=== PATIENT | male | born 1950 | race Caucasian/White ===

== ENCOUNTER 2018-08-06 08:30 | Outpatient (RCR) | payer MEDICARE, OTHER | END 2018-08-06 09:00 | disposition home or self-care (01) | LOC: PT 08:30 | DX: M54.5 Low back pain (principal) | CPT/HCPCS: G8978-GP; G8979-GP ==

== ENCOUNTER 2021-07-25 10:55 | Outpatient (RCR) | payer MEDICARE, OTHER | END 2021-07-29 17:00 | disposition home or self-care (01) | LOC: PT 10:55 | DX: Z96.659 Presence of unspecified artificial knee joint (principal) ==

== ENCOUNTER → 2021-09-23 | Outpatient (CLI) | payer MEDICARE, OTHER ==
[2021-09-23 07:31] LABS: HEMATOCRIT 34.2 % (42.0-52.0); HEMOGLOBIN 10.2 g/dL (13.5-18.0); MEAN PLATELET VOLUME 10.3 fl (7.4-10.4); RED BLOOD COUNT 3.99 M/mm3 (4.20-5.60); WHITE BLOOD COUNT 8.9 K/mm3 (4.8-10.8)
[2021-09-23 07:42] LABS: ALBUMIN 2.9 g/dL (3.4-4.8)
[2021-09-23 07:43] LABS: POTASSIUM 3.8 mmol/L (3.5-5.1)
[2021-09-23 07:44] LABS: CALCIUM 9.6 mg/dL (8.3-10.5)
[2021-09-23 07:45] LABS: TOTAL PROTEIN 6.4 g/dL (6.2-8.1)
[2021-09-23 07:47] LABS: TOTAL BILIRUBIN 0.3 mg/dL (0.2-1.2)
[2021-09-23 21:24] LABS: FOLATE (FOLIC ACID) 14.2 ng/mL (2.0-20.0)
== END ==
LOC: LAB 05:00
PROVIDERS: Family Medicine
DX: Z01.89 Encounter for other specified special examinations (principal)

== ENCOUNTER → 2021-10-07 | Outpatient (CLI) | payer MEDICARE, OTHER | LOC: AMSURD 11:06 | DX: R00.0 Tachycardia, unspecified (principal) ==

== ENCOUNTER → 2021-10-18 | Outpatient (CLI) | payer MEDICARE, OTHER | LOC: RAD 10:00 → VAS 10:04 | DX: R00.0 Tachycardia, unspecified (principal) ==

== ENCOUNTER → 2021-10-25 | Outpatient (CLI) | payer MEDICARE | LOC: RAD 09:26 | DX: K80.20 Calculus of gallbladder without cholecystitis without obstruction (principal) ==

== ENCOUNTER → 2021-11-14 | Outpatient (CLI) | payer MEDICARE ==
[~2021-11-14] MED LIST: ASPIRIN E.C. 8181 MG PO; ATORVASTATIN CA40 MG PO; B-121000 MCG PO; BISMUTH262 M1 PO; DIGOX0.25 MG PO; ENOXAPARIN100 MG/M1 SQ; ESCITALOPRAM10 MG PO; FAMOTIDINE20 MG PO; FOLIC ACID1 MG PO; LEADER C 250 MG1 TAB PO; METOCLOPRAMIDE H5 M1 PO; METOPROLOL SUCC25 M1 PO; METRONIDAZOLE500 M1 PO; ONDANSETRON HYDR8 MG PO; PANTOPRAZOLE SO40 MG PO; PROBIOTIC1 EAC1 PO; TETRACYCLINE H500 M2 PO; TYLENOL 325MG325 MG PO; VITAMIN D250 MC1 PO; WELLBUTRIN XL300 M1 PO
== END ==
LOC: RAD 09:00
DX: I82.423 Acute embolism and thrombosis of iliac vein, bilateral (principal); E83.59 Other disorders of calcium metabolism; N29 Other disorders of kidney and ureter in diseases classified elsewhere; Z90.49 Acquired absence of other specified parts of digestive tract
CPT/HCPCS: Q9967

== ENCOUNTER 2021-11-19 20:46 | Observation (INO) | payer MEDICARE ==
[~2021-11-19] VITALS: Ht 177.8 cm; Wt 77.3 kg
[2021-11-19 21:26] LABS: BASO # 0.02 K/mm3 (0.02-0.10); EOS # 0.08 K/mm3 (0.04-0.40); EOS % 0.7 % (0.0-4.0); HEMATOCRIT 41.5 % (42.0-52.0); HEMOGLOBIN 12.9 g/dL (13.5-18.0); LYMPH# 1.72 K/mm3 (1.50-4.00); MEAN CELL VOLUME 81 fl (78-100); MEAN CORPUSCULAR HEMOGLOBIN 25 pg (27-31); MEAN CORPUSCULAR HGB CONC 31 g/dL (33-37); MEAN PLATELET VOLUME 10.5 fl (7.4-10.4); MONO # 1.21 K/mm3 (0.20-0.80); NEU # 8.71 K/mm3 (1.40-6.50); PLATELET COUNT 249 K/mm3 (130-400); RED CELL DISTRIBUTION WIDTH 16.4 % (11.5-14.5); WHITE BLOOD COUNT 11.8 K/mm3 (4.8-10.8)
[2021-11-19 21:38] LABS: POTASSIUM 3.2 mmol/L (3.5-5.1)
[2021-11-19 21:42] LABS: TOTAL PROTEIN 5.8 g/dL (6.2-8.1)
[2021-11-19 21:43] LABS: TOTAL BILIRUBIN 0.3 mg/dL (0.2-1.2)
[2021-11-19 22:28] LABS: URINE APPEARANCE CLOUDY; URINE BILIRUBIN NEGATIVE (NEGATIVE); URINE BLOOD 250 ery/uL (NEGATIVE); URINE COLOR BROWN; URINE GLUCOSE NEGATIVE (NEGATIVE); URINE KETONE 1+ (NEGATIVE); URINE LEUKOCYTE ESTERASE NEGATIVE (NEGATIVE); URINE NITRATE NEGATIVE (NEGATIVE); URINE PROTEIN(semi-quant) 1+ (NEGATIVE); URINE UROBILINOGEN NORMAL (NORMAL)
[2021-11-19] MEDS ORDERED: TYLENOL 325MG325 MG PO (22:53)
[2021-11-19] MEDS ORDERED: B-121000 MCG PO (22:54)
[2021-11-19] MEDS ORDERED: ATORVASTATIN CA40 MG PO (22:54)
[2021-11-19] MEDS ORDERED: ASPIRIN E.C. 8181 MG PO (22:54)
[2021-11-19] MEDS ORDERED: BISMUTH262 M1 PO (22:55)
[2021-11-19] MEDS ORDERED: DIGOX0.25 MG PO (22:56)
[2021-11-19] MEDS ORDERED: WELLBUTRIN XL300 M1 PO (22:56)
[2021-11-19] MEDS ORDERED: ENOXAPARIN100 MG/M1 SQ (22:57)
[2021-11-19] MEDS ORDERED: FAMOTIDINE20 MG PO (22:57)
[2021-11-19] MEDS ORDERED: ESCITALOPRAM10 MG PO (22:57)
[2021-11-19] MEDS ORDERED: FOLIC ACID1 MG PO (22:57)
[2021-11-19] MEDS ORDERED: METOCLOPRAMIDE H5 M1 PO (22:58)
[2021-11-19] MEDS ORDERED: METOPROLOL SUCC25 M1 PO (22:59)
[2021-11-19] MEDS ORDERED: METRONIDAZOLE500 M1 PO (22:59)
[2021-11-19] MEDS ORDERED: ONDANSETRON HYDR8 MG PO (23:00)
[2021-11-19] MEDS ORDERED: PROBIOTIC1 EAC1 PO (23:00)
[2021-11-19] MEDS ORDERED: PANTOPRAZOLE SO40 MG PO (23:00)
[2021-11-19] MEDS ORDERED: LEADER C 250 MG1 TAB PO (23:01)
[2021-11-19] MEDS ORDERED: TETRACYCLINE H500 M2 PO (23:01)
[2021-11-19] MEDS ORDERED: VITAMIN D250 MC1 PO (23:02)
[2021-11-20 05:31] VITALS: BP 151/82
[2021-11-20 10:20] VITALS: BP 144/80
[2021-11-20 12:00] LABS: POTASSIUM 3.6 mmol/L (3.5-5.1)
[2021-11-20 12:02] LABS: CALCIUM 9.3 mg/dL (8.3-10.5)
[2021-11-20 14:28] VITALS: BP 159/89
[2021-11-20 17:25] VITALS: BP 95/76
[2021-11-20 23:11] VITALS: BP 149/89
[2021-11-21 05:41] VITALS: BP 152/79
[2021-11-21 07:53] VITALS: BP 152/79
[2021-11-21 09:48] VITALS: BP 137/82
[2021-11-21 10:17] LABS: BASO # 0.02 K/mm3 (0.02-0.10); EOS # 0.01 K/mm3 (0.04-0.40); EOS % 0.1 % (0.0-4.0); HEMATOCRIT 38.1 % (42.0-52.0); HEMOGLOBIN 11.8 g/dL (13.5-18.0); MEAN CELL VOLUME 82 fl (78-100); MEAN CORPUSCULAR HEMOGLOBIN 25 pg (27-31); MEAN CORPUSCULAR HGB CONC 31 g/dL (33-37); MEAN PLATELET VOLUME 11.4 fl (7.4-10.4); MONO # 1.98 K/mm3 (0.20-0.80); PLATELET COUNT 220 K/mm3 (130-400); RED BLOOD COUNT 4.66 M/mm3 (4.20-5.60); RED CELL DISTRIBUTION WIDTH 16.4 % (11.5-14.5); WHITE BLOOD COUNT 14.2 K/mm3 (4.8-10.8)
[2021-11-21 10:22] LABS: ALBUMIN 2.7 g/dL (3.4-4.8); POTASSIUM 3.3 mmol/L (3.5-5.1); SODIUM 135 mmol/L (136-145)
[2021-11-21 10:23] LABS: CALCIUM 9.1 mg/dL (8.3-10.5)
[2021-11-21 10:24] LABS: GLUCOSE 117 mg/dL (75-110)
[2021-11-21 10:25] LABS: TOTAL PROTEIN 5.3 g/dL (6.2-8.1)
[2021-11-21 10:26] LABS: CARBON DIOXIDE 19 mmol/L (23-31); TOTAL BILIRUBIN 0.3 mg/dL (0.2-1.2)
[2021-11-21 10:30] LABS: AST-SGOT 10 U/L (5-34)
[2021-11-21 10:32] LABS: MAGNESIUM 1.23 mg/dL (1.60-2.60)
[2021-11-21 10:35] LABS: LIPASE 17 U/L (8-78)
[2021-11-21 10:41] LABS: TROPONIN-I 0.366 ng/mL (<0.030)
[2021-11-21 10:48] LABS: ALT/SGPT < 6 U/L (0-55)
== END 2021-11-21 12:52 ==
LOC: ED 20:46 → MED/SURG 11-20 00:54
PROVIDERS: Internal Medicine; ADMIT Family Medicine
DX: R44.3 Hallucinations, unspecified (principal); R41.0 Disorientation, unspecified; E86.9 Volume depletion, unspecified; E87.6 Hypokalemia; K13.0 Diseases of lips; A04.8 Other specified bacterial intestinal infections; K14.8 Other diseases of tongue; Z93.2 Ileostomy status; Z90.49 Acquired absence of other specified parts of digestive tract; Z86.718 Personal history of other venous thrombosis and embolism; Z79.01 Long term (current) use of anticoagulants
CPT/HCPCS: G0378; J1650; J2920; J3480; J7120; Q9967

== ENCOUNTER 2021-11-21 12:08 | Inpatient (IN) | payer MEDICARE ==
[~2021-11-21] VITALS: Ht 177.8 cm; Wt 78.0 kg
[2021-11-21 14:04] VITALS: BP 109/71
[2021-11-21 17:48] VITALS: BP 135/79
[2021-11-21 19:09] VITALS: BP 135/79
== END 2021-11-21 19:06 | disposition short-term general hospital (02) | DRG 101 ==
LOC: MED/SURG 12:08
PROVIDERS: ADMIT Internal Medicine
DX: G40.909 Epilepsy, unspecified, not intractable, without status epilepticus (principal); I74.5 Embolism and thrombosis of iliac artery; I47.1 Supraventricular tachycardia; E83.42 Hypomagnesemia; E87.6 Hypokalemia; K21.9 Gastro-esophageal reflux disease without esophagitis; T78.3XXA Angioneurotic edema, initial encounter; F32.A Depression, unspecified; F41.9 Anxiety disorder, unspecified; Z20.822 Contact with and (suspected) exposure to COVID-19; R79.89 Other specified abnormal findings of blood chemistry; E78.5 Hyperlipidemia, unspecified; Z79.82 Long term (current) use of aspirin; Z93.2 Ileostomy status; Z96.651 Presence of right artificial knee joint
CPT/HCPCS: J1953; J2405; J3475; J3480; J7042; Q2009

== ENCOUNTER 2021-11-24 22:05 | Emergency (ER) | payer MEDICARE ==
[~2021-11-24] VITALS: Ht 172.7 cm; Wt 80.3 kg
[2021-11-24 22:42] LABS: BASO # 0.01 K/mm3 (0.02-0.10); EOS # 0.26 K/mm3 (0.04-0.40); EOS % 2.3 % (0.0-4.0); HEMATOCRIT 42.7 % (42.0-52.0); MEAN CELL VOLUME 83 fl (78-100); MEAN CORPUSCULAR HEMOGLOBIN 25 pg (27-31); MEAN CORPUSCULAR HGB CONC 30 g/dL (33-37); NEU # 8.14 K/mm3 (1.40-6.50); PLATELET COUNT 232 K/mm3 (130-400); RED BLOOD COUNT 5.16 M/mm3 (4.20-5.60); RED CELL DISTRIBUTION WIDTH 16.9 % (11.5-14.5); WHITE BLOOD COUNT 11.5 K/mm3 (4.8-10.8)
[2021-11-24 22:52] LABS: ALBUMIN 2.8 g/dL (3.4-4.8)
[2021-11-24 22:53] LABS: POTASSIUM 3.7 mmol/L (3.5-5.1)
[2021-11-24 22:54] LABS: CALCIUM 9.2 mg/dL (8.3-10.5)
[2021-11-24 22:55] LABS: TOTAL PROTEIN 5.4 g/dL (6.2-8.1)
[2021-11-24 22:57] LABS: TOTAL BILIRUBIN 0.2 mg/dL (0.2-1.2)
[2021-11-24] MEDS ORDERED: ELIQUIS5 MG PO (23:25)
[2021-11-24] MEDS ORDERED: BISMUTH SUBSAL PO (23:47)
[2021-11-24] MEDS ORDERED: KEPPRA750 M1 PO (23:48)
[2021-11-24] MEDS ORDERED: LEVOFLOXACIN750 MG PO (23:49)
[2021-11-24] MEDS ORDERED: METRONIDAZOLE500 M1 PO (23:52)
[2021-11-24] MEDS ORDERED: ONDANSETRON HYDR8 MG PO (23:53)
[2021-11-24] MEDS ORDERED: PROTONIX TR40 M1 PO (23:53)
[2021-11-24] MEDS ORDERED: PROBIOTIC1 EAC4 PO (23:55)
[2021-11-25 00:49] LABS: URINE APPEARANCE CLOUDY; URINE BILIRUBIN NEGATIVE (NEGATIVE); URINE COLOR YELLOW; URINE GLUCOSE NEGATIVE (NEGATIVE); URINE KETONE NEGATIVE (NEGATIVE); URINE PROTEIN(semi-quant) TRACE (NEGATIVE)
[2021-11-25 00:50] LABS: URINE BLOOD 250 ery/uL (NEGATIVE); URINE LEUKOCYTE ESTERASE NEGATIVE (NEGATIVE); URINE NITRATE NEGATIVE (NEGATIVE); URINE UROBILINOGEN NORMAL (NORMAL)
[2021-11-25 01:40] VITALS: BP 108/77
== END 2021-11-25 01:40 | disposition home or self-care (01) ==
LOC: ED 22:05
PROVIDERS: Nurse Practitioner
DX: S09.90XA Unspecified injury of head, initial encounter (principal); S50.312A Abrasion of left elbow, initial encounter; Z79.01 Long term (current) use of anticoagulants; W06.XXXA Fall from bed, initial encounter; Y92.129 Unspecified place in nursing home as the place of occurrence of the external cause

== ENCOUNTER 2021-11-28 13:24 | Emergency (ER) | payer MEDICARE ==
[~2021-11-28 13:24] MED LIST changes: +BISMUTH SUBSAL PO; +ELIQUIS5 MG PO; +KEPPRA750 M1 PO; +LEVOFLOXACIN750 MG PO; +PROBIOTIC1 EAC4 PO; +PROTONIX TR40 M1 PO
[2021-11-28 14:07] LABS: BASO # 0.01 K/mm3 (0.02-0.10); EOS # 0.08 K/mm3 (0.04-0.40); HEMATOCRIT 41.6 % (42.0-52.0); HEMOGLOBIN 12.4 g/dL (13.5-18.0); MEAN CELL VOLUME 84 fl (78-100); MEAN CORPUSCULAR HEMOGLOBIN 25 pg (27-31); MEAN CORPUSCULAR HGB CONC 30 g/dL (33-37); MEAN PLATELET VOLUME 10.4 fl (7.4-10.4); MONO # 0.74 K/mm3 (0.20-0.80); NEU # 5.86 K/mm3 (1.40-6.50); PLATELET COUNT 268 K/mm3 (130-400); RED BLOOD COUNT 4.95 M/mm3 (4.20-5.60); RED CELL DISTRIBUTION WIDTH 17.3 % (11.5-14.5); WHITE BLOOD COUNT 8.1 K/mm3 (4.8-10.8)
[2021-11-28 14:18] LABS: ALBUMIN 2.9 g/dL (3.4-4.8); POTASSIUM 3.6 mmol/L (3.5-5.1)
[2021-11-28 14:19] LABS: CALCIUM 9.8 mg/dL (8.3-10.5)
[2021-11-28 14:21] LABS: TOTAL PROTEIN 5.5 g/dL (6.2-8.1)
[2021-11-28 14:22] LABS: TOTAL BILIRUBIN 0.3 mg/dL (0.2-1.2)
[2021-11-28] MEDS ORDERED: KEPPRA1000 MG PO (15:04)
[2021-11-28 17:09] VITALS: BP 197/107
== END 2021-11-28 17:10 | disposition home or self-care (01) ==
LOC: ED 13:24
PROVIDERS: Nurse Practitioner
DX: G40.909 Epilepsy, unspecified, not intractable, without status epilepticus (principal); R11.2 Nausea with vomiting, unspecified
CPT/HCPCS: J2405

== ENCOUNTER → 2021-12-29 | Outpatient (CLI) | payer MEDICARE ==
[~2021-12-29] MED LIST changes: +KEPPRA1000 MG PO
[2021-12-29 13:05] LABS: ALBUMIN 2.7 g/dL (3.4-4.8)
[2021-12-29 13:06] LABS: POTASSIUM 4.4 mmol/L (3.5-5.1)
[2021-12-29 13:14] LABS: MAGNESIUM 1.68 mg/dL (1.60-2.60)
== END ==
LOC: LAB 12:15
PROVIDERS: Family Medicine
DX: R56.9 Unspecified convulsions (principal)

== ENCOUNTER → 2022-01-16 | Outpatient (CLI) | payer MEDICARE ==
[2022-01-16 14:56] LABS: PROTHROMBIN TIME 18.7 SECONDS (9.0-12.0)
== END ==
LOC: LAB 11:30
PROVIDERS: Family Medicine
DX: I82.429 Acute embolism and thrombosis of unspecified iliac vein (principal)

== ENCOUNTER → 2022-01-30 | Outpatient (CLI) | payer MEDICARE | LOC: LAB 16:05 | PROVIDERS: Family Medicine | DX: I69.351 Hemiplegia and hemiparesis following cerebral infarction affecting right dominant side (principal); I69.354 Hemiplegia and hemiparesis following cerebral infarction affecting left non-dominant side; I69.310 Attention and concentration deficit following cerebral infarction ==

== ENCOUNTER → 2022-02-09 | Outpatient (CLI) | payer MEDICARE ==
[2022-02-09 11:37] LABS: BASO # 0.02 K/mm3 (0.02-0.10); EOS # 0.42 K/mm3 (0.04-0.40); EOS % 5.2 % (0.0-4.0); HEMATOCRIT 34.6 % (42.0-52.0); HEMOGLOBIN 10.5 g/dL (13.5-18.0); LYMPH# 2.16 K/mm3 (1.50-4.00); MEAN CELL VOLUME 93 fl (78-100); MEAN CORPUSCULAR HEMOGLOBIN 28 pg (27-31); MEAN CORPUSCULAR HGB CONC 30 g/dL (33-37); MEAN PLATELET VOLUME 9.9 fl (7.4-10.4); MONO # 0.56 K/mm3 (0.20-0.80); NEU # 4.84 K/mm3 (1.40-6.50); PLATELET COUNT 265 K/mm3 (130-400); RED BLOOD COUNT 3.74 M/mm3 (4.20-5.60); RED CELL DISTRIBUTION WIDTH 16.9 % (11.5-14.5); WHITE BLOOD COUNT 8.1 K/mm3 (4.8-10.8)
[2022-02-09 11:56] LABS: URINE APPEARANCE BLOODY; URINE COLOR BLOODY
[2022-02-09 11:57] LABS: URINE BILIRUBIN NEGATIVE (NEGATIVE); URINE BLOOD 250 ery/uL (NEGATIVE); URINE GLUCOSE NEGATIVE (NEGATIVE); URINE KETONE 1+ (NEGATIVE); URINE LEUKOCYTE ESTERASE 1+ (NEGATIVE); URINE NITRATE POSITIVE (NEGATIVE); URINE PROTEIN(semi-quant) 1+ (NEGATIVE); URINE UROBILINOGEN NORMAL (NORMAL)
[2022-02-09 12:14] LABS: PROTHROMBIN TIME 37.5 SECONDS (9.0-12.0)
== END ==
LOC: LAB 11:23
PROVIDERS: Family Medicine
DX: I69.310 Attention and concentration deficit following cerebral infarction (principal); I69.311 Memory deficit following cerebral infarction; I69.322 Dysarthria following cerebral infarction

== ENCOUNTER → 2022-02-13 | Outpatient (CLI) | payer MEDICARE | LOC: LAB 12:16 | PROVIDERS: Family Medicine | DX: I69.310 Attention and concentration deficit following cerebral infarction (principal); I69.311 Memory deficit following cerebral infarction; I69.322 Dysarthria following cerebral infarction ==

== ENCOUNTER → 2022-02-24 | Outpatient (CLI) | payer MEDICARE ==
[~2022-02-24] MED LIST changes: +CEFDINIR300 MG PO
[2022-02-24 12:58] LABS: BASO # 0.04 K/mm3 (0.02-0.10); EOS # 0.42 K/mm3 (0.04-0.40); EOS % 4.9 % (0.0-4.0); HEMATOCRIT 34.6 % (42.0-52.0); HEMOGLOBIN 10.6 g/dL (13.5-18.0); LYMPH# 1.93 K/mm3 (1.50-4.00); MEAN CELL VOLUME 94 fl (78-100); MEAN CORPUSCULAR HEMOGLOBIN 29 pg (27-31); MEAN CORPUSCULAR HGB CONC 31 g/dL (33-37); MEAN PLATELET VOLUME 10.4 fl (7.4-10.4); MONO # 0.62 K/mm3 (0.20-0.80); NEU # 5.45 K/mm3 (1.40-6.50); PLATELET COUNT 280 K/mm3 (130-400); RED BLOOD COUNT 3.69 M/mm3 (4.20-5.60); RED CELL DISTRIBUTION WIDTH 15.6 % (11.5-14.5); WHITE BLOOD COUNT 8.5 K/mm3 (4.8-10.8)
[2022-02-24 13:09] LABS: POTASSIUM 4.6 mmol/L (3.5-5.1); PROTHROMBIN TIME 37.4 SECONDS (9.0-12.0)
[2022-02-24 13:11] LABS: CALCIUM 9.2 mg/dL (8.3-10.5)
[2022-02-24 13:12] LABS: TOTAL PROTEIN 5.2 g/dL (6.2-8.1)
[2022-02-24 13:14] LABS: TOTAL BILIRUBIN 0.2 mg/dL (0.2-1.2)
== END ==
LOC: LAB 12:42
PROVIDERS: Family Medicine
DX: D50.9 Iron deficiency anemia, unspecified (principal); I82.429 Acute embolism and thrombosis of unspecified iliac vein

== ENCOUNTER → 2022-02-27 | Outpatient (CLI) | payer MEDICARE ==
[2022-02-27 16:02] LABS: PROTHROMBIN TIME 46.8 SECONDS (9.0-12.0)
== END ==
LOC: LAB 14:00
PROVIDERS: Family Medicine
DX: I69.310 Attention and concentration deficit following cerebral infarction (principal); I69.311 Memory deficit following cerebral infarction; I69.322 Dysarthria following cerebral infarction

== ENCOUNTER 2022-03-01 14:13 | Emergency (ER) | payer MEDICARE ==
[~2022-03-01] VITALS: Ht 167.6 cm; Wt 80.3 kg
[~2022-03-01 14:13] MED LIST changes: -CEFDINIR300 MG PO
[2022-03-01 14:53] LABS: BASO # 0.03 K/mm3 (0.02-0.10); EOS # 0.57 K/mm3 (0.04-0.40); EOS % 6.5 % (0.0-4.0); HEMATOCRIT 35.2 % (42.0-52.0); HEMOGLOBIN 10.9 g/dL (13.5-18.0); LYMPH# 1.84 K/mm3 (1.50-4.00); MEAN CELL VOLUME 93 fl (78-100); MEAN CORPUSCULAR HEMOGLOBIN 29 pg (27-31); MEAN CORPUSCULAR HGB CONC 31 g/dL (33-37); MEAN PLATELET VOLUME 9.5 fl (7.4-10.4); MONO # 0.75 K/mm3 (0.20-0.80); NEU # 5.59 K/mm3 (1.40-6.50); PLATELET COUNT 253 K/mm3 (130-400); RED BLOOD COUNT 3.79 M/mm3 (4.20-5.60); RED CELL DISTRIBUTION WIDTH 15.3 % (11.5-14.5); WHITE BLOOD COUNT 8.8 K/mm3 (4.8-10.8)
[2022-03-01 15:06] LABS: POTASSIUM 4.5 mmol/L (3.5-5.1); PROTHROMBIN TIME 24.8 SECONDS (9.0-12.0)
[2022-03-01 15:07] LABS: CALCIUM 9.6 mg/dL (8.3-10.5)
[2022-03-01 15:08] LABS: TOTAL PROTEIN 5.6 g/dL (6.2-8.1)
[2022-03-01 15:10] LABS: TOTAL BILIRUBIN 0.2 mg/dL (0.2-1.2)
[2022-03-01 16:47] LABS: URINE APPEARANCE CLOUDY; URINE BILIRUBIN NEGATIVE (NEGATIVE); URINE BLOOD 250 ery/uL (NEGATIVE); URINE COLOR YELLOW; URINE GLUCOSE NEGATIVE (NEGATIVE); URINE KETONE NEGATIVE (NEGATIVE); URINE LEUKOCYTE ESTERASE 2+ (NEGATIVE); URINE NITRATE NEGATIVE (NEGATIVE); URINE PROTEIN(semi-quant) 2+ (NEGATIVE); URINE UROBILINOGEN NORMAL (NORMAL); URINE WBC >50 /hpf (0-3)
[2022-03-01 16:48] LABS: URINE MUCUS PRESENT (NOT PRESENT)
[2022-03-01] MEDS ORDERED: CEFDINIR300 MG PO (17:10)
[2022-03-01 18:03] VITALS: BP 106/62
== END 2022-03-01 18:09 | disposition home or self-care (01) ==
LOC: ED 14:13
PROVIDERS: Physician Assistant
DX: N39.0 Urinary tract infection, site not specified (principal); Z79.01 Long term (current) use of anticoagulants; Z87.19 Personal history of other diseases of the digestive system
CPT/HCPCS: J0696

== ENCOUNTER → 2022-03-01 | Outpatient (CLI) | payer MEDICARE | LOC: LAB 11:40 | PROVIDERS: Family Medicine | DX: I69.310 Attention and concentration deficit following cerebral infarction (principal); I69.311 Memory deficit following cerebral infarction; I69.322 Dysarthria following cerebral infarction ==

== ENCOUNTER → 2022-03-03 | Outpatient (CLI) | payer MEDICARE ==
[~2022-03-03] MED LIST changes: +CEFDINIR300 MG PO
[2022-03-03 13:42] LABS: PROTHROMBIN TIME 29.6 SECONDS (9.0-12.0)
== END ==
LOC: LAB 12:47
PROVIDERS: Family Medicine
DX: I69.310 Attention and concentration deficit following cerebral infarction (principal); I69.311 Memory deficit following cerebral infarction; I69.322 Dysarthria following cerebral infarction

== ENCOUNTER → 2022-03-08 | Outpatient (CLI) | payer MEDICARE ==
[2022-03-08 16:03] LABS: PROTHROMBIN TIME 55.7 SECONDS (9.0-12.0)
== END ==
LOC: LAB 12:38
PROVIDERS: Family Medicine
DX: I69.310 Attention and concentration deficit following cerebral infarction (principal); I69.311 Memory deficit following cerebral infarction; I69.322 Dysarthria following cerebral infarction

== ENCOUNTER → 2022-03-14 | Outpatient (CLI) | payer MEDICARE ==
[2022-03-14 13:42] LABS: PROTHROMBIN TIME 35.2 SECONDS (9.0-12.0)
== END ==
LOC: LAB 12:54
PROVIDERS: Family Medicine
DX: I69.310 Attention and concentration deficit following cerebral infarction (principal); I69.311 Memory deficit following cerebral infarction; I69.322 Dysarthria following cerebral infarction

== ENCOUNTER → 2022-03-16 | Outpatient (CLI) | payer MEDICARE ==
[2022-03-16 16:24] LABS: PROTHROMBIN TIME 43.1 SECONDS (9.0-12.0)
== END ==
LOC: LAB 11:44
PROVIDERS: Family Medicine
DX: I69.310 Attention and concentration deficit following cerebral infarction (principal); I69.311 Memory deficit following cerebral infarction; I69.322 Dysarthria following cerebral infarction

== ENCOUNTER → 2022-03-20 | Outpatient (CLI) | payer MEDICARE ==
[2022-03-20 13:56] LABS: PROTHROMBIN TIME 29.7 SECONDS (9.0-12.0)
== END ==
LOC: LAB 11:49
PROVIDERS: Family Medicine
DX: Z01.89 Encounter for other specified special examinations (principal); Z79.01 Long term (current) use of anticoagulants

== ENCOUNTER → 2022-03-22 | Outpatient (CLI) | payer MEDICARE ==
[2022-03-22 12:24] LABS: PROTHROMBIN TIME 45.7 SECONDS (9.0-12.0)
== END ==
LOC: LAB 10:52
PROVIDERS: Family Medicine
DX: Z01.89 Encounter for other specified special examinations (principal)

== ENCOUNTER → 2022-03-27 | Outpatient (CLI) | payer MEDICARE ==
[2022-03-27 14:51] LABS: PROTHROMBIN TIME 21.1 SECONDS (9.0-12.0)
== END ==
LOC: LAB 14:23
PROVIDERS: Family Medicine
DX: I69.310 Attention and concentration deficit following cerebral infarction (principal); I69.311 Memory deficit following cerebral infarction; I69.312 Visuospatial deficit and spatial neglect following cerebral infarction

== ENCOUNTER → 2022-03-30 | Outpatient (CLI) | payer MEDICARE ==
[2022-03-30 11:50] LABS: PROTHROMBIN TIME 32.2 SECONDS (9.0-12.0)
== END ==
LOC: LAB 10:32
PROVIDERS: Family Medicine
DX: I69.310 Attention and concentration deficit following cerebral infarction (principal); I69.311 Memory deficit following cerebral infarction; I69.322 Dysarthria following cerebral infarction

== ENCOUNTER → 2022-04-03 | Outpatient (CLI) | payer MEDICARE ==
[2022-04-03 13:07] LABS: PROTHROMBIN TIME 22.4 SECONDS (9.0-12.0)
== END ==
LOC: LAB 12:42
PROVIDERS: Family Medicine
DX: I69.310 Attention and concentration deficit following cerebral infarction (principal); I69.311 Memory deficit following cerebral infarction; I69.322 Dysarthria following cerebral infarction

== ENCOUNTER → 2022-04-06 | Outpatient (CLI) | payer MEDICARE ==
[2022-04-06 12:37] LABS: PROTHROMBIN TIME 33.5 SECONDS (9.0-12.0)
== END ==
LOC: LAB 11:39
PROVIDERS: Family Medicine
DX: I69.310 Attention and concentration deficit following cerebral infarction (principal); I69.311 Memory deficit following cerebral infarction; I69.322 Dysarthria following cerebral infarction

== ENCOUNTER → 2022-04-10 | Outpatient (CLI) | payer MEDICARE | LOC: LAB 12:02 | PROVIDERS: Family Medicine | DX: I69.310 Attention and concentration deficit following cerebral infarction (principal); I69.311 Memory deficit following cerebral infarction; I69.322 Dysarthria following cerebral infarction ==

== ENCOUNTER → 2022-04-17 | Outpatient (CLI) | payer MEDICARE ==
[2022-04-17 12:06] LABS: PROTHROMBIN TIME 23.8 SECONDS (9.0-12.0)
== END ==
LOC: LAB 11:27
PROVIDERS: Family Medicine
DX: I69.310 Attention and concentration deficit following cerebral infarction (principal); I69.311 Memory deficit following cerebral infarction; I69.312 Visuospatial deficit and spatial neglect following cerebral infarction

== ENCOUNTER → 2022-04-24 | Outpatient (CLI) | payer MEDICARE ==
[2022-04-24 14:00] LABS: PROTHROMBIN TIME 41.8 SECONDS (9.0-12.0)
== END ==
LOC: LAB 12:40
PROVIDERS: Family Medicine
DX: I69.310 Attention and concentration deficit following cerebral infarction (principal); I69.311 Memory deficit following cerebral infarction; I69.322 Dysarthria following cerebral infarction; Z79.01 Long term (current) use of anticoagulants

== ENCOUNTER → 2022-04-27 | Outpatient (CLI) | payer MEDICARE ==
[2022-04-27 10:55] LABS: PROTHROMBIN TIME 41.5 SECONDS (9.0-12.0)
== END ==
LOC: LAB 10:06
PROVIDERS: Family Medicine
DX: I69.310 Attention and concentration deficit following cerebral infarction (principal); I69.311 Memory deficit following cerebral infarction; I69.322 Dysarthria following cerebral infarction

== ENCOUNTER → 2022-05-04 | Outpatient (CLI) | payer MEDICARE ==
[2022-05-04 13:19] LABS: PROTHROMBIN TIME 12.7 SECONDS (9.0-12.0)
== END ==
LOC: LAB 12:31
PROVIDERS: Family Medicine
DX: I69.310 Attention and concentration deficit following cerebral infarction (principal); I69.311 Memory deficit following cerebral infarction; I69.322 Dysarthria following cerebral infarction

== ENCOUNTER → 2022-05-08 | Outpatient (CLI) | payer MEDICARE ==
[2022-05-08 11:14] LABS: PROTHROMBIN TIME 16.1 SECONDS (9.0-12.0)
== END ==
LOC: LAB 10:16
PROVIDERS: Family Medicine
DX: I69.310 Attention and concentration deficit following cerebral infarction (principal); I69.311 Memory deficit following cerebral infarction; I69.322 Dysarthria following cerebral infarction

== ENCOUNTER → 2022-05-16 | Outpatient (CLI) | payer MEDICARE | LOC: LAB 12:08 | DX: I69.310 Attention and concentration deficit following cerebral infarction (principal); I69.311 Memory deficit following cerebral infarction; I69.322 Dysarthria following cerebral infarction ==

== ENCOUNTER → 2022-05-29 | Outpatient (CLI) | payer MEDICARE ==
[~2022-05-29] MED LIST changes: +ASPIRIN E.C. 8181 MG; +CEPHALEXIN500 M1 PO; +LEXAPRO20 M1 PO; +VALPROIC A250 MG/52 PO; +WARFARIN SOD5 MG PO; +WARFARIN SODIUM3 MG PO
[2022-05-29 12:08] LABS: PROTHROMBIN TIME 25.2 SECONDS (9.0-12.0)
== END ==
LOC: LAB 11:10
PROVIDERS: Family Medicine
DX: I69.310 Attention and concentration deficit following cerebral infarction (principal); I69.311 Memory deficit following cerebral infarction; I69.322 Dysarthria following cerebral infarction

== ENCOUNTER → 2022-06-27 | Outpatient (CLI) | payer MEDICARE ==
[2022-06-27 11:44] LABS: ALBUMIN 3.1 g/dL (3.4-4.8); POTASSIUM 4.7 mmol/L (3.5-5.1)
[2022-06-27 11:45] LABS: BASO # 0.01 K/mm3 (0.02-0.10); CALCIUM 9.3 mg/dL (8.3-10.5); EOS # 0.23 K/mm3 (0.04-0.40); HEMATOCRIT 41.9 % (42.0-52.0); HEMOGLOBIN 13.1 g/dL (13.5-18.0); LYMPH# 1.94 K/mm3 (1.50-4.00); MEAN CELL VOLUME 92 fl (78-100); MEAN CORPUSCULAR HEMOGLOBIN 29 pg (27-31); MEAN CORPUSCULAR HGB CONC 31 g/dL (33-37); MEAN PLATELET VOLUME 9.8 fl (7.4-10.4); MONO # 0.49 K/mm3 (0.20-0.80); NEU # 3.09 K/mm3 (1.40-6.50); PLATELET COUNT 198 K/mm3 (130-400); RED BLOOD COUNT 4.56 M/mm3 (4.20-5.60); RED CELL DISTRIBUTION WIDTH 16.6 % (11.5-14.5); WHITE BLOOD COUNT 5.8 K/mm3 (4.8-10.8)
[2022-06-27 11:46] LABS: TOTAL PROTEIN 5.3 g/dL (6.2-8.1)
[2022-06-27 11:48] LABS: TOTAL BILIRUBIN 0.4 mg/dL (0.2-1.2)
== END ==
LOC: LAB 11:07
PROVIDERS: Family Medicine
DX: I82.429 Acute embolism and thrombosis of unspecified iliac vein (principal); D50.9 Iron deficiency anemia, unspecified; E88.09 Other disorders of plasma-protein metabolism, not elsewhere classified

== ENCOUNTER → 2022-11-02 | Outpatient (CLI) | payer MEDICARE ==
[2022-11-02 13:43] LABS: BASO # 0.01 K/mm3 (0.02-0.10); EOS % 1.3 % (0.0-4.0); HEMATOCRIT 43.5 % (42.0-52.0); HEMOGLOBIN 13.4 g/dL (13.5-18.0); LYMPH# 1.42 K/mm3 (1.50-4.00); MEAN CELL VOLUME 90 fl (78-100); MEAN CORPUSCULAR HEMOGLOBIN 28 pg (27-31); MEAN CORPUSCULAR HGB CONC 31 g/dL (33-37); MEAN PLATELET VOLUME 10.4 fl (7.4-10.4); MONO # 0.64 K/mm3 (0.20-0.80); NEU # 5.45 K/mm3 (1.40-6.50); PLATELET COUNT 201 K/mm3 (130-400); RED BLOOD COUNT 4.86 M/mm3 (4.20-5.60); RED CELL DISTRIBUTION WIDTH 14.9 % (11.5-14.5); WHITE BLOOD COUNT 7.6 K/mm3 (4.8-10.8)
[2022-11-02 14:01] LABS: ALBUMIN 3.3 g/dL (3.4-4.8); POTASSIUM 4.3 mmol/L (3.5-5.1)
[2022-11-02 14:02] LABS: CALCIUM 8.9 mg/dL (8.3-10.5)
[2022-11-02 14:03] LABS: TOTAL PROTEIN 5.6 g/dL (6.2-8.1)
[2022-11-02 14:05] LABS: TOTAL BILIRUBIN 0.3 mg/dL (0.2-1.2)
[2022-11-03 04:39] LABS: LEVETIRACETAM (KEPPRA) 43 ug/mL (5-45)
== END ==
LOC: LAB 13:05
PROVIDERS: Family Medicine
DX: I69.310 Attention and concentration deficit following cerebral infarction (principal); I69.311 Memory deficit following cerebral infarction; I69.822 Dysarthria following other cerebrovascular disease

== ENCOUNTER 2023-04-10 16:23 | Outpatient (RCR) | payer MEDICARE | END 2023-05-10 | disposition home or self-care (01) | LOC: PT | DX: R53.1 Weakness (principal) ==

== ENCOUNTER 2023-07-11 07:50 | Outpatient (RCR) | payer MEDICARE | END 2023-08-09 | disposition home or self-care (01) | LOC: PT | DX: R53.1 Weakness (principal) ==

== ENCOUNTER 2023-08-10 08:00 | Outpatient (RCR) | payer MEDICARE | END 2023-09-09 | disposition home or self-care (01) | LOC: PT | DX: R53.1 Weakness (principal) ==

== ENCOUNTER 2023-09-11 08:00 | Outpatient (RCR) | payer MEDICARE | END 2023-10-10 | disposition home or self-care (01) | LOC: PT | DX: R53.1 Weakness (principal) ==

== ENCOUNTER 2023-10-11 08:00 | Outpatient (RCR) | payer MEDICARE | END 2023-11-08 | disposition home or self-care (01) | LOC: PT | DX: R53.1 Weakness (principal) ==